=== PATIENT | female | born 1935 | race Caucasian/White ===

== ENCOUNTER 2023-05-27 15:05 | Emergency (ER) | payer MEDICARE, OTHER ==
[2023-05-27] MEDS ORDERED: HYDROcodone/Acetaminophen 5/325 mg Tablet ONE (16:44)
== END 2023-05-27 17:25 | disposition home or self-care (01) ==
LOC: CSHERS 15:05
DX: S82.841A Displaced bimalleolar fracture of right lower leg, initial encounter for closed fracture (principal); X50.1XXA Overexertion from prolonged static or awkward postures, initial encounter